=== PATIENT | female | born 1950 | race Caucasian/White ===

== ENCOUNTER 2019-09-23 13:48 | Emergency (ER) | payer MEDICAID ==
[~2019-09-23] VITALS: Ht 165.1 cm; Wt 68.0 kg
[2019-09-23] MEDS ORDERED: IBUPROFEN 600MG TABLET PO ONE (17:15)
[2019-09-23 17:30] VITALS: BP 170/77
== END 2019-09-23 18:15 | disposition home or self-care (01) ==
LOC: ER 13:48
DX: M54.2 Cervicalgia (principal); I10 Essential (primary) hypertension; Z98.890 Other specified postprocedural states
CPT/HCPCS: 99283